=== PATIENT | female | born 1995 | race Caucasian/White ===

== ENCOUNTER 2016-10-25 01:10 | Inpatient (IN) | payer MEDICAID ==
[~2016-10-25] VITALS: Ht 172.7 cm; Wt 97.5 kg
--- NOTE | ~2016-10-25 | HP ---
ADMIT: 10/25/2016 RM/LOC: 221 [facility] MR#: [id number] 2620 [facility] [address] [place], [place] [address] DECEMBER, SCOTT BACON [address] [place] [address] History and Physical SEX: F AGE: 21 : 1995 DATE OF SERVICE: CHIEF COMPLAINT: Imminent delivery. HISTORY OF PRESENT ILLNESS: Scott is a 21-year-old, 2 para 1, with intrauterine at 38 weeks and 6/7 days. Presented early this morning as city-call patient, admitted to Dr. Ayala for complaints of contractions. Apparently, the patient is from [place], was following with her OB care with Dr. Moreno in [place], but has not been seen since approximately 20 weeks. She does not know of any complications during her . She admits to using marijuana just as recently as 2 weeks ago but denies any other drug use. The patient was admitted in active labor. She has had an epidural. As I was rounding, nursing personnel grabbed me to inform me that the patient was about to deliver and there was no physician on site as of yet. The patient complaining of significant pressure in her pelvis region. PAST MEDICAL HISTORY: Seizure disorder, unknown medications. MEDICATIONS: None. ALLERGIES: NONE THAT I AM AWARE. SOCIAL HISTORY: The father of the baby is unknown. The patient lives in [place]. She does smoke marijuana. I do not believe she is currently working. She also uses tobacco and has used during as well. FAMILY HISTORY: Noncontributory. REVIEW OF SYSTEMS: A 10-point review of systems obtained, per HPI, otherwise negative. PHYSICAL EXAMINATION: VITAL SIGNS: Within normal limits and stable. Afebrile. GENERAL: The patient was in much distress upon my initial examination with significant pressure in pelvis region. Infant noted to be on the perineum. Thick meconium stained. HEENT: Pupils equal, round, and reactive. Extraocular muscles intact. HEART AND LUNGS: Examination was deferred given state of the patient. ABDOMEN: Gravid. PELVIS: Examination again showed the infant's vertex to the perineum. EXTREMITIES: Without any edema. NEUROLOGIC: Intact. No focal deficits. LABORATORY DATA: White blood count 12.5, hemoglobin 13.3. Trace protein in the urine. Negative glucose. Drug abuse screen was positive for marijuana. HIV negative, hepatitis B negative, GBS unknown. No antibiotics given. Blood type A positive. ADMIT: 10/25/2016 RM/LOC: 221 [facility] MR#: [id number] [address] [address] DECEMBER, SCOTT ARLEEN [address] [facility] [address] [place] [address] History and Physical SEX: F AGE: 21 : 1995 ASSESSMENT: This is a 21-year-old with: 1. Active labor with imminent delivery. 2. Poor care with no care after 20 weeks. 3. Meconium stained fluid. 4. Group B Strep unknown without any antibiotics given. 5. Marijuana use during . 6. Tobacco use in . 7. Seizure disorder. PLAN: Imminent delivery of . We will plan for delivery. Expected management. Eduardo Walker MD/ xiang JOB #: [id number] CC: Wilfredo Ayala, Attending Physician Wilfredo Ayala, Family Physician
--- NOTE | ~2016-10-25 | FD ---
ADMIT: 10/25/2016 RM/LOC: 221 [facility] MR#: [id number] 2620 [facility] [address] [place] [phone] DECEMBER, SCOTT BACON [address] [facility] [address] [place] [address] Final Diagnosis SEX: F AGE: 21 : 1995 ADMISSION DATE: 10/25/2016 DISCHARGE DATE: 10/27/2016 FINAL DIAGNOSIS: 1. Term . 2. Noncompliance, care. PROCEDURE: Vaginal delivery. Wilfredo Ayala MD/ pete JOB #: [id number] CC: Wilfredo Ayala MD, Attending Physician Wilfredo Ayala MD, Family Physician
[2016-10-28] MEDS ORDERED: MOTRIN-DPS800 MG PO (10:51)
[2016-10-28] MEDS ORDERED: NIPPLECREAM TP (10:52)
[2016-10-28] MEDS ORDERED: TYLENOL #3 DPS1 TAB PO (10:52)
--- NOTE | 2016-11-01 08:10 | OR ---
ADMIT: 10/25/2016 RM/LOC: 221 [facility] MR#: [id number] [address] [address] DECEMBER, SCOTT BACON [address] [place] [address] Operative/Delivery Room Report SEX: F AGE: 21 : 1995 SURGERY DATE: 10/25/2016 SURGEON: Eduardo Walker MD PREOPERATIVE DIAGNOSES: 1. Imminent delivery. 2. Poor care with no care after 20 weeks. 3. Meconium-stained fluid. 4. Group B Streptococcus unknown, no antibiotics given. 5. Marijuana use during . 6. Tobacco use during . 7. History of seizure disorder. POSTOPERATIVE DIAGNOSES: 1. Status post spontaneous vaginal delivery. 2. Removal of epidural catheter. 3. Imminent delivery. 4. Poor care with no care after 20 weeks. 5. Meconium-stained fluid. 6. Group B Streptococcus unknown, no antibiotics given. 7. Marijuana use during . 8. Tobacco use during . 9. History of seizure disorder. PROCEDURE: 1. Spontaneous vaginal delivery. 2. Removal of epidural catheter. FINDINGS: 1. Live-born male, born at 0748 with a weight of 7 pounds 10.5 ounces, and scores of 8 and 9 at 1 and 5 minutes respectively. 2. Intact placenta with 3-vessel cord. ANESTHESIA: Epidural. ESTIMATED BLOOD LOSS: 200 mL. COMPLICATIONS: None immediate. FLUIDS: Crystalloid. INDICATION FOR PROCEDURE: Please refer to dictated H and P. Briefly, a 21- year-old, 2, para 1, with an intrauterine at 38 weeks 6/7 days, presented to Labor and Delivery on the morning of admission with complaints of contractions. She was found to be in labor and not followed up with her primary online marketing specialist, Dr. Moreno since approximately 20 weeks. The patient received epidural, progressed to labor to the point bringing the 's vertex to the perineum. There were no other major complications during labor and continuous maternal monitoring was done throughout and ADMIT: 10/25/2016 RM/LOC: 221 [facility] MR#: [id number] [address] [facility] [address] [place] [phone] DECEMBER, SCOTT BACON [address] [place] [address] Operative/Delivery Room Report SEX: F AGE: 21 : 1995 was reassuring. DESCRIPTION OF PROCEDURE: I was asked to help with delivery of , as the patient's attending physician was en route and delivery was imminent. Infant's vertex was noted to be on the perineum. The patient was draped in the usual fashion. She was asked to push, delivering the 's head in the OA position. After restitution of the head, no nuchal cords were noted, and the left anterior shoulder followed by the posterior shoulder and the remainder of the was done without difficulty. Infant was noted to be vigorous and crying. Mouth and nares were bulb-suctioned. was held below the maternal pelvis for approximately 30-45 seconds for delayed clamping. was dried, transferred to the maternal abdomen, where nursing personnel were in attendance. Cord was clamped x2 and cut. Cord blood was obtained. Placenta delivered intact in less than 5 minutes. Attention then turned to the vaginal vault and cervix, which were noted to be free of laceration. Likewise, perineum, noted to be free of laceration. Uterus was palpable and firm. Twenty units of Pitocin was started in the IV bag to help firm the uterus. There were no other major complications during the delivery. Sponge and needle counts were correct. The epidural was removed post procedure without difficulty and noted to be correct length. Infant and mother were in stable condition on my departure, recovering well. Eduardo Walker MD/ xiang JOB #: [id number] CC: Wilfredo Ayala, Attending Physician Wilfredo Ayala, Family Physician Gabby Moreno MD
== END 2016-10-27 12:51 | disposition home or self-care (01) | DRG 775 ==
LOC: 2LDRP 01:10 → BC 01:10 → 2LDRP 01:53
PROVIDERS: ADMIT Family Medicine
PROC: 10E0XZZ Delivery of Products of Conception, External Approach (ICD-10-PCS; principal; 2016-10-25)
DX: O77.0 Labor and delivery complicated by meconium in amniotic fluid (principal); O99.324 Drug use complicating childbirth; O99.334 Smoking (tobacco) complicating childbirth; F17.210 Nicotine dependence, cigarettes, uncomplicated; F12.90 Cannabis use, unspecified, uncomplicated; Z3A.38 38 weeks gestation of pregnancy; Z37.0 Single live birth

== ENCOUNTER 2016-12-01 12:02 | Emergency (ER) | payer MEDICAID ==
[~2016-12-01 12:02] MED LIST: MOTRIN-DPS800 MG PO; NIPPLECREAM TP; TYLENOL #3 DPS1 TAB PO
== END 2016-12-01 13:37 | disposition left against medical advice (07) ==
LOC: ER 12:02
DX: Z53.21 Procedure and treatment not carried out due to patient leaving prior to being seen by health care provider (principal)

== ENCOUNTER 2017-01-06 14:15 | Inpatient (IN) | payer MEDICAID ==
[~2017-01-06] VITALS: Ht 172.7 cm; Wt 86.8 kg
--- NOTE | ~2017-01-06 | TXPLANREV ---
"PATIENT: SCOTT DAWKINS | | [facility] UNIT #: [id number] | [address] [facility] AGE/SEX: 21 F : [birth year] | [address] | [place] [phone] ADMIT/REG DATE: 01/06/17 | ROOM: [facility] LOC: ADTC | ADTC | Treatment Plan/Staffing Review Date: 01/27/17 Treatment plan was reviewed and determined appropriate as written: Client has session with father to share feelings letters and discuss aftercare. Is to work on Relapse prevention packet. Treatment plan was reviewed and the following changes/addition/deletions are necessary: Discharge plans were reviewed and determined appropriate as previously documented: Client is scheduled for discharge on 02/03/17, She [facility], but has applied to [facility] to live there until [facility] an opening. She is to do aftercare counseling and Codependency Group therapy here while waiting. If [facility] does not have any openings for over 2 months then can reevaluate if that is still a need. Client is to call sponsor 4-7x/week and attend meetings 4-7x/week and seek employment. Discharge plans were reviewed and determined to be as follows: Other pertinent issues discussed during this staffing review include: Client had appearance of starting a relationsip with male in treatment and will be put on contract. Staff Present: Bella Garcia, Katharine Sylvester, Arlin Mead, Rhonda Hansen PRIMARY COUNSELOR: Kimi Valdez Client Signature Counselor Signature Date Time "
--- NOTE | ~2017-01-06 | INDIVTXPL2 ---
"PATIENT: SCOTT DAWKINS | | [facility] UNIT #: [id number] | [address] AGE/SEX: 21 F : [birth year] | [address] | [place] [address] ADMIT/REG DATE: 01/06/17 | ROOM: [facility] LOC: ADTC | ADTC | Individualized Treatment Plan DATE: 01/13/17 Problem Statement/Issue Identified: Client has struggled with alchol/drug use causing consequences in her life and needs help to be clean/sober. Goal: Client is to learn about alcohol/drug addiction, identifying consequences of her use and learn how to work the AA/NA/SYSTEM DEVELOPMENT MANAGER program of recovery. Objectives/Activities to achieve goal: 1. Client is to fill out Getting Started and Step 1 packets, identifying 10-15 consequences of her use. Share with counselor and share selected pages in group. Due Date: 01/21/17 Complete: Incomplete: 2. Client is to get temporary Female AA/NA/SYSTEM DEVELOPMENT MANAGER sponsor to call weekly while in treatment. Share progress with counselor. Due Date: ongoing Complete: Incomplete: 3. Client is to attend and talk at AA/NA/SYSTEM DEVELOPMENT MANAGER meetings weekly and is to pick a topic at a meeting or help chair a meeting. Due Date: ongoing Complete: Incomplete: Client Signature Date Counselor Signaure: Date Outcome/Measurement of Progress Towards Goal: Counselor Signature: Date "
--- NOTE | ~2017-01-06 | INDIVTXPL2 ---
"PATIENT: SCOTT DAWKINS | | [facility] UNIT #: [id number] | [address] AGE/SEX: 21 F : [birth year] | [address] | [place] [phone] ADMIT/REG DATE: 01/06/17 | ROOM: [facility] LOC: ADTC | ADTC | Individualized Treatment Plan DATE: 01/18/17 Problem Statement/Issue Identified: Client needs to address issues related to past childhood trauma/anxiety/anger which is contributing to their continued abuse of chemicals. Goal: Client is to address her past trauma/feelings with counselor using EMDR. Objectives/Activities to achieve goal: 1. Client is to get oriented to EMDR with video and doing EMDR safe-place. See counselor note. Due Date: 01/20/17 Complete: Incomplete: 2. Client is to do EMDR on trauma/anxiety/anger if willing. See counselor notes. Due Date: 02/02/17 Complete: Incomplete: Client Signature Date Counselor Signaure: Date Outcome/Measurement of Progress Towards Goal: Counselor Signature: Date "
--- NOTE | ~2017-01-06 | INDIVTXPL2 ---
"PATIENT: SCOTT DAWKINS | | [facility] UNIT #: [id number] | [address] AGE/SEX: 21 F : [birth year] | [address] | [place] [phone] ADMIT/REG DATE: 01/06/17 | ROOM: [facility] LOC: ADTC | ADTC | Individualized Treatment Plan DATE: 01/25/17 Problem Statement/Issue Identified: Client needs to identify relapse warning signs and develop a plan to deal with them as they arise. Goal: Client is to learn about relapse prevention, identifying her top relapse triggers and develop a plan of how to cope with them to prevent relapse. Objectives/Activities to achieve goal: 1. Client is to attend Relapse Prevention class every Tuesday 3-4pm while in treatment and participate. See class notes. Due Date: 02/03/17 Complete: Incomplete: 2. Client is to fill out Relapse Prevention packet, identifying top 5-10 relapse triggers and develop a plan of how to avoid relapse. Share with counselor and selected pages in group Due Date: 02/03/17 Complete: Incomplete: Client Signature Date Counselor Signaure: Date Outcome/Measurement of Progress Towards Goal: Counselor Signature: Date "
--- NOTE | ~2017-01-06 | TXPLANREV ---
"PATIENT: SCOTT DAWKINS | | [facility] UNIT #: [id number] | [address] AGE/SEX: 21 F : [birth year] | [address] | [place] [phone] ADMIT/REG DATE: 01/06/17 | ROOM: [facility] LOC: ADTC | ADTC | Treatment Plan/Staffing Review Date: 01/20/17 Treatment plan was reviewed and determined appropriate as written: yes, client is attending family with S.O. did come to family session, and client is to write feelings letters. Treatment plan was reviewed and the following changes/addition/deletions are necessary: Discharge plans were reviewed and determined appropriate as previously documented: Discharge plans were reviewed and determined to be as follows: Client is to discharge on 02/03/17, she has applied at [facility] and did the interview. She is being referred to [facility] and may need to be at [facility] while waiting for that opening so did apply also for [facility]. Client is also being referred to AA/NA/MICROSTRATEGY DEVELOPER and using sponsor. Other pertinent issues discussed during this staffing review include: Client appears to struggle with self-esteem, emotions and does talk with several counselors off and on. She is going to address self-esteem and trauma while here which should help. Her S.O. may still be using per staff. Staff Present: Bella Garcia, Arlin Mead, Rhonda Case, Raissa Gutierrez, Courtney Dill, Mayra Thrasher PRIMARY COUNSELOR: Kimi Valdez Client Signature Counselor Signature Date Time "
--- NOTE | ~2017-01-06 | RESCARESUM ---
PATIENT: SCOTT DAWKINS | | [facility] UNIT #: [id number] | [address] [facility] AGE/SEX: 21 F : [birth year] | [address] | [place] [address] ADMIT/REG DATE: 01/06/17 | ROOM: [facility] LOC: ADTC | ADTC | Summary of Residential Care Primary Counselor: Kimi Valdez LM,[facility] Date of Admission: 01/06/17 Date of Discharge: 02/03/17 Referral Source: Referred by Wallace Rivera MS,AKIN,[facility] billet checker Kiersten Patiño Primary Care Provider Prior to Admission: no doctor listed Admitting Diagnosis: F12.20 Cannabis use disorder-severe, F15.20 Stimulant use disorder-severe in full-sustained remission, F17.20 Tobacco use disorder and per Doctors H&P-Seizure disorder Discharge Diagnosis: unchanged and rule out alcohol abuse disorder-mild as she was drinking 3x/year but at times more than 2-3. Goals Achieved: Client successfully completed residential treatment for addiction. She did complete Step 1, did get and use a sponsor while in treatment, wrote feelings letters and her father was involved in Family Session but not the family program. Client attended the Family Program alone. She did work on self-esteem but needs further help with this. She also did do EMDR therapy but could use further help with this also. She did start on Relapse Prevention packet and attended classes weekly on Relapse Prevention, 12 steps, Spirituality and Recover 101. Client was put on contract due to fraternization with a male in treatment (note/letter writing) and she had an old BF pick her up on day of discharge saying she would be safe and not use, and is to stay with her Grandmother vivian and enter [facility] tomorrow. Continued Obstacles to Sobriety/Relapse Issues: Put on front "I'm Fine", not asking for help, impatience, negativity, isolation, anger, people-pleasing, jealousy, stress/worry, codependency/poor boundaries, low self-esteem Family Issues Addressed: Clients father is her childrens caregiver/foster home and seems very loving to her 2 babies. He did come in for private family session and did hear client share feelings letter. He wants her to succeed in staying clean/sober and to get her 2 children back. He did ask if he would be allowed visits at [facility] to see these 2 grandchildren that he is very attached to. x Individual Therapy x Group Therapy x Educational Series on Substance Abuse x Parents/Significant Others Attended Family Program Acute Medical Problems During the Course of Treatment Transferred to Hospital During the Course of Treatment x Accepting of Substance Abuse Problem Non-accepting of Substance Abuse Problem Required Psychological or Psychiatric Consultation During the Course of Treatment PATIENT: SCOTT DAWKINS | | [facility] UNIT #: [id number] | [address] [place] [address] AGE/SEX: 21 F : [birth year] | [address] | [place] [address] ADMIT/REG DATE: 01/06/17 | ROOM: [facility] LOC: [facility] | [facility] | Summary of Residential Care Completed AA Step # 1 During This Level of Care Significant Incidences During Treatment: Client was put on contract for her fraternization, note writing and spending too much time with a male while in treatment. Reason For Discharge: x Completed Residential TX Goals and Ready For Next Level of Care Left Tx Against Medical Advice/Treatment Goals Not Complete Completed Residential Tx Goals But Refusing Continuing Care Recommendations Discharged Due to Noncompliance/Treatment Goals not Completed Discharged Earlier Than Planned Due to: Continuing Care Plan/Recommendations: Intensive Partial Care x Sponsor Partial Care x AA Meetings/NA Meetings x Outpatient x Co-dependency Services Therapeutic Community x [facility]/[address] [facility] [address] [facility] Marriage Counseling Other Specific Continuing Care Plan: Client is [facility] but is currently on the waiting list and is to call them every Tuesday or Tuesday. She is to enter [facility] until [facility] get [facility]. She is being referred to continue Outpatient/Aftercare with Wallace Rivera on 02/11/17 at 12:00noon and is to start Codependency Group on 02/10/17 at 6pm. She is to attend AA/NA/SERGING MACHINE OPERATOR 3-7x/week and call sponsor daily. PRIMARY COUNSELOR: Kimi Valdez
--- NOTE | ~2017-01-06 | INDIVTXPL2 ---
PATIENT: SCOTT DAWKINS | | [facility] UNIT #: [id number] | [address] AGE/SEX: 21 F : [birth year] | [address] | [place] [phone] ADMIT/REG DATE: 01/06/17 | ROOM: [facility] LOC: ADTC | ADTC | Individualized Treatment Plan DATE: 01/25/17 Problem Statement/Issue Identified: Client needs to identify ways to improve self esteem to help maintain moth exterminator sobriety from all mood altering substances. Goal: Client is to build her self-esteem to help strengthen her recovery from addiction. Objectives/Activities to achieve goal: 1. Client is to fill out lists of 10 examples "I'm worthwhile because" and "Your thoughts and Feelings" incomplete sentences to know self better and identify good qualities. Share with counselor and/or group. Due Date: 01/28/17 Complete: Incomplete: 2. Client is to interview 7 peers and 3 staff to name 2 good qualities about her and is to add it to her lists. Share with counselor. Due Date: 02/01/17 Complete: Incomplete: Client Signature Date Counselor Signaure: Date Outcome/Measurement of Progress Towards Goal: Counselor Signature: Date
--- NOTE | ~2017-01-06 | INDIVTXPL2 ---
"PATIENT: SCOTT DAWKINS | | [facility] UNIT #: [id number] | [address] AGE/SEX: 21 F : [birth year] | [address] | [place] [address] ADMIT/REG DATE: 01/06/17 | ROOM: [facility] LOC: ADTC | ADTC | Individualized Treatment Plan DATE: 01/13/17 Problem Statement/Issue Identified: Client is experiencing family & significant other discord and distancing as a result of past alcohol & drug usage. Goal: Client is to learn about how addiction affects loved ones/self, and improve honest communication/sharing feelings to strengthen her relationships. Objectives/Activities to achieve goal: 1. Client is to attend Family Educational program on and Tuesday and participate. See Family Notes. Due Date: 01/24/17 Complete: Incomplete: 2. Client is to write feelings letters to Parents, kids, & S.O. owning how her addiction has hurt them and her feelings about this. Share with counselor/group/family. Due Date: 02/03/17 Complete: Incomplete: 3. Client is to have a family session with S.O. &/or father to hear there perspective/ observation/feelings about her addiction. See family session notes. Due Date: ongoing Complete: Incomplete: Client Signature Date Counselor Signaure: Date Outcome/Measurement of Progress Towards Goal: Counselor Signature: Date "
--- NOTE | ~2017-01-06 | CLPRLASSUM ---
"PATIENT: SCOTT DAWKINS | | [facility] UNIT #: [id number] | [address] AGE/SEX: 21 F : [birth year] | [address] | [place] [id number] ADMIT/REG DATE: 01/06/17 | ROOM: [facility] LOC: ADTC | ADTC | Client Problem List/Assessment Summary Date: 01/12/17 Problems identified by the client: addiction, family, childhood trauma to help with feelings/anger/anxiety, self-esteem, relapse prevention Problems identified by significant others: addiction, deal with anger/anxiety Client's Strengths: kind, motivated, honest Problem List: Code: T Client continues to use alcohol &/or drugs despite ongoing negative consequences. Code: T Client is experiencing family &/or significant other discord and distancing as a result of past alcohol &/or drug usage. Code: T Client needs to address issues related to past childhood trauma/anxiety/anger which is contributing to their continued abuse of chemicals. Code: T Client needs to identify ways to improve self esteem to help maintain intermediate teacher sobriety from all mood altering substances. Code: T Client needs to identify relapse warning signs and develop a plan to deal with them as they arise. Code Hong: T: to be addressed during course of treatment O: problem noted, expected to resolve itself with abstinence--specific tx plan not required R: problem noted, will be referred upon discharge PRIMARY COUNSELOR: Kimi Valdez"
--- NOTE | 2017-01-06 16:15 | NUR ---
IS 1 hr/ Client and counselor got acquainted, she shared about herself and has kids in [place], says she is motivated to get help and [facility]. She failed several UA's for marijuana and wants to be clean for herself and her 2 sons that are at her fathers. 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 She was having seizures but got off Phenobarbital as it made her feel drugged/sleepy. She has 2 children and back with a bF she had before that they had miscarriage together. She felt depressed when [facility] made her move out of dad's house, was arrested 11/13/15 and has had [facility] involved since then, also drank 2x since August 2016. Did go over initial tx plan and is to fill out GS packet.
--- NOTE | 2017-01-06 21:54 | NUR ---
ADMISSION NOTE Client is a 21 year old single female from [place] where she lives with her dad and 2 sons. Client came here from her friends house where she was for 2 weeks. DOC is pot, last used December 18 and 3 grams used. Meth from over a year ago. NKMA, no Meds and Dad anticipated to participate in family. notified, checked into room. Kimi assigned counselor. Rights/Responsibilities: Copy given and explained to client. Signed and accepted by client. Client oriented to physical lay out of the ADTC unit, given Big Book and admission packet. A Kyle was assigned. Stacy
--- NOTE | 2017-01-06 22:12 | NUR ---
Education 1 HR: Clt watched video by Flora "Dionna Sorensen" with staff present.
--- NOTE | 2017-01-06 22:35 | NUR ---
Tech Note: Clt walked for recreation and attended GM. Clt searched , checked into room and had first intro to grp. SE arriving tx
--- NOTE | 2017-01-07 04:45 | NUR ---
Bed Note: Clt lay motionless in bed with eyes closed showing no distress at all bed checks.
--- NOTE | 2017-01-07 11:30 | NUR ---
Group 1.5 hr/ 11:1 Clients all heard peers share in discussion about when is it addiction with loss of control or being a "functional addict" as peer asked questions. Also they introduced self to newcomer. This client was attentive and gave some feedback.
--- NOTE | 2017-01-07 15:57 | NUR ---
PEER REVIEWS 1.25 HRS: Clt participated in peer reviews and took a risk to give open and honest feedback to those receiving a review.
--- NOTE | 2017-01-07 16:20 | NUR ---
Tech Note: Client listened to speaker Michel Villatoro and is working on Getting Started.
--- NOTE | 2017-01-07 16:42 | NUR ---
Let her call father about cigs and he said she will get child visit this Tuesday.
--- NOTE | 2017-01-07 20:57 | NUR ---
Tech note: client watched TV and movies. Walked to optional offiste AA meeting. SE:peer review
--- NOTE | 2017-01-08 04:59 | NUR ---
Bed note: Client was in bed with eyes closed and no distress at all bed checks.
--- NOTE | 2017-01-08 16:52 | NUR ---
Tech Note: Client attended the A.A.Meeting at [address] [place] [address] and is working on Step1. Client also had a visit.
--- NOTE | 2017-01-08 22:55 | NUR ---
Tech note: Client walked around the park a few times for rec. Client walked to an off site AA meeting. SE: Family
--- NOTE | 2017-01-09 05:02 | NUR ---
Bed note: client was in bed with eyes closed and no distress at all bed checks.
--- NOTE | 2017-01-09 15:31 | NUR ---
TECH NOTE: Client participated in big book study, attended mu-ism, completed chores and watched tv/movies. Had visitors and went for a walk
--- NOTE | 2017-01-09 19:16 | NUR ---
tech note: client c/o level headache/migraine @ 1914,motrin 400 mg was given.
--- NOTE | 2017-01-09 23:30 | NUR ---
tech note: Client participated in Community Clean & attended VP RESPIRATORY meeting. Client played cards & colored. SE: sponsor celebrating 6 years.
--- NOTE | 2017-01-10 04:45 | NUR ---
Bed note: client was in bed with eyes closed and no distress at all bed checks.
--- NOTE | 2017-01-10 15:17 | NUR ---
Tech note: Client is working on Step 1.
--- NOTE | 2017-01-10 22:58 | NUR ---
Tech Note: Clt walked for recreation and attended onsite NA mtg. C/o about being shaky and bruising on legs. Clt blamed new medication for this problem and filled out self care sheet. Vitals were B/P 120/72 P 105 and Temp 97.7. RN was notified. SE was visit and JUAN pérezg.
--- NOTE | 2017-01-11 04:45 | NUR ---
Bed Note: Clt lay motionless in bed with eyes closed showing no distress at all bed checks.
--- NOTE | 2017-01-11 12:44 | NUR ---
1.5 hr res group/ratio 1:9/ Group heard a step one, a letter to addiction, and discussed the importants of keeping a balance of not doing to many nice things for others verses taking care of self. This client started to cry when she talked about codependency and how she helped others too much.
--- NOTE | 2017-01-11 12:45 | NUR ---
1.5 hr res group/ratio 1:9/ Group heard a step one, a letter to addiction, and discussed the importants of keeping a balance of not doing to many nice things for others verses taking care of self. This client started to cry when she shared she is codependent and likes to help others too much.
--- NOTE | 2017-01-11 15:37 | NUR ---
Tech Note: Client participated in light stretching for morning exercise and went on an outdoor walk in the afternoon. Client stated that he is working on Step One.
--- NOTE | 2017-01-11 15:48 | NUR ---
Education 1 Hour: Client watched the video, "How to Sabotage your Treatment."
--- NOTE | 2017-01-11 18:01 | NUR ---
Medication Note: Client refused a medication today, wants to discontinue it.
--- NOTE | 2017-01-11 23:04 | NUR ---
Tech note: Client walked a mile for rec, did guided meditation and attended an onsite AA meeting. SE; Talking with women in AA community
--- NOTE | 2017-01-11 23:05 | NUR ---
Client was up past curfew
--- NOTE | 2017-01-12 04:23 | NUR ---
Education: 1 Hour. Client attended presentation by staff on "Step 1."
--- NOTE | 2017-01-12 05:16 | NUR ---
Bed note: Client was in bed with eyes closed and in no apparent distress at all bed checks.
--- NOTE | 2017-01-12 09:42 | NUR ---
Tech notes: Client is working on Step 1 and mtg with kathrine
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
--- NOTE | 2017-01-12 12:09 | NUR ---
FAMILY CONTACT- did call clients father, he works til 5:30 but can come after that for Tuesday family program if finds a coffee grower. He will talk to coffee grower. Counselor may need to do phone session if no sitter. He hopes she works on addiction, anger and anxiety, how to cope with those feelings.
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
--- NOTE | 2017-01-12 13:30 | NUR ---
Education note: Client attend educational speaker Vicky Rodriguez
--- NOTE | 2017-01-12 16:31 | NUR ---
SPIRITUAL EDUCATION 1 HR. Newcomers were oriented to group. Todays topic was addicted self vs spiritual self which we discussed first then they depicted the contrast in artwork. The ones that finished first wrote letters to welcome anonymous newcomers.
--- NOTE | 2017-01-12 22:47 | NUR ---
Tech note : Client played catch phrase for rec and attended an onsite NA meeting. SE; Getting a sponsor
--- NOTE | 2017-01-13 04:42 | NUR ---
Bed note: client was in bed with eyes closed and no distress at all bed checks.
--- NOTE | 2017-01-13 10:49 | NUR ---
Tech Note : Client participated in Spiritual Enrichment. Client stated that she is working on Step One and writing a letter to newcomers.
--- NOTE | 2017-01-13 11:30 | NUR ---
AM GRP 1.5 HRS, Ratio 1:10/ Clt participated in grp discussion on various topics, including relationships, with PO's, counselors, s/o's and kids. She could relate to the relationship she has w/ her purchasing manager/sales. She thinks she is against her and doesn't want her to succeed. She heard she needs to change her outlook on authority and see her purchasing manager/sales for what she IS trying to help her with.
--- NOTE | 2017-01-13 13:10 | NUR ---
Education 1 Hour: Client heard a recovery speaker who addressed the subject of hope.
--- NOTE | 2017-01-13 16:52 | NUR ---
FAMILY SESSION .75 HR/ Did meet with client before family program, she was wanting to leave so let her call her S.O. to ask him to come to Family today and he did. She thanked counselor. Then met with both of them after family program, they have been best friends for years, use to date and now are back together. He has to go to Sentencing on 01/29 and is facing 0-2. He doesn't like 12 step meetings so doesn't go, but depends on family support and keeping busy for his recovery. Asked client about why she wanted to leave and what will stop that in the future from happening, she said she wanted to leave because reacted to "Drama" of peer. She gets alot of help/support by calling and talking with sponsor/S.O. and a tech and a counselor here also are very helpful so counselor praised her for working her program, she did stay and she did ask for help. Confronted that desire to run is addiction. She asked about [facility] and counselor explained how they are unpredictable and therefore unsafe, did discuss [facility] and they both said that sounds great, so will apply there and also at [facility] as place to wait for opening. Client likes this idea. Will get releases signed later.
--- NOTE | 2017-01-13 17:00 | NUR ---
FAMILY EDUCATION 3 HRS. Client was accompanied by her S/O. They took part in the discussion on the disease concept. S/O reports that he may be going back to [facility] in 13 days, making reference to his own drug use and smirked. When he was confronted, he said it was like daycare and he didn't have to worry about bills there. Client shared about effects on her kids, which are not S/O's children even though they have been together off and on for 6 (?) years.
--- NOTE | 2017-01-13 20:35 | NUR ---
Education: 1 Hour. Client attended Renzo Guillermo video "Step 5."
--- NOTE | 2017-01-13 22:57 | NUR ---
Client went on a walk for rec, participated in guided meditation, and attended the on unit A.A.Meeting. SE: Family
--- NOTE | 2017-01-14 05:29 | NUR ---
Bed Note: Client was in bed and motionless at all bed checks.
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
--- NOTE | 2017-01-14 13:00 | NUR ---
PEER REVIEWS 1.5 HRS: Clt participated in peer review process and was able to give open, honest feedback to those receiving a review.
--- NOTE | 2017-01-14 14:27 | NUR ---
Tech Note: Client watched Recovery Issues Part 3. Is working on Step 1.
--- NOTE | 2017-01-14 20:16 | NUR ---
Tech note: Clt read guidelines as a grp, used phone and watched tv/movies. Clt had clothes brought in by s/o. SE was chap time
--- NOTE | 2017-01-15 05:20 | NUR ---
BED NOTE: Client was in bed, motionless with eyes closed all bed checks.
--- NOTE | 2017-01-15 16:50 | NUR ---
Tech Note: Client attended NA Panel today and is working on Step 1. He had visitors.
--- NOTE | 2017-01-15 20:14 | NUR ---
TECH NOTE: Client participated in beads for REC, attended offsite AA meeting and watched TV/Movies. SE:NA panel, visits
--- NOTE | 2017-01-16 04:55 | NUR ---
Bed Note: Clt lay motionless in bed with eyes closed showing no distress at all bed checks.
--- NOTE | 2017-01-16 07:40 | NUR ---
Medication Note: Client took prn ibuprophen for menstrual cramps rated at 5.
--- NOTE | 2017-01-16 16:10 | NUR ---
Tech Note: Client is working on Step 1. She went to protestant, joined group on optional walk and had visitors.
--- NOTE | 2017-01-16 22:55 | NUR ---
Tech Note: Client attended the on unit A.A.Panel. Client also attended the BANDER OPERATOR Meeting. SE: A.A.Panel/Visitation
--- NOTE | 2017-01-17 04:41 | NUR ---
Client was in bed and motionless at all bed checks.
--- NOTE | 2017-01-17 09:56 | NUR ---
Tech notes: Client is working on Step 1
--- NOTE | 2017-01-17 13:36 | NUR ---
Education note: Client attended educational speaker Violeta on Tobacco
--- NOTE | 2017-01-17 13:55 | NUR ---
PEER REVIEWS/Morning Group 1.50 HRS: Clt participated in peer reviews and took a risk to give open and honest feedback to those receiving a review. Client listened during am group.
--- NOTE | 2017-01-17 16:00 | NUR ---
RECOVERY 101 1 HR/ Clients did read and discuss several topics in the Big Book on HOnesty, 1/2measures, step 3, selfishness, 12 Promises, resentments, acceptance and how changing their attitudes empowers them to have happiness daily. They were given highlighters so the Big Book can become a tool in recovery.
--- NOTE | 2017-01-17 18:17 | NUR ---
EDUCATION 1 HR: Counselor gave lecture on forgiveness.
--- NOTE | 2017-01-17 23:28 | NUR ---
tech note: Client played Catch Phrase for recreation & attended onsite NA meeting. Client left the NA meeting and came to tech station complaining of former client XV in the meeting being disruptive-talking and having her phone out. Client was encouraged to bring this issue up in the morning community meeting. SE: Catch Phrase
--- NOTE | 2017-01-18 05:38 | NUR ---
BED NOTE: Client was in bed, motionless with eyes closed all bed checks.
--- NOTE | 2017-01-18 08:54 | NUR ---
Medication Note: Client is refusing morning vitamins, stating they make her feel sick.
--- NOTE | 2017-01-18 10:00 | NUR ---
IS 1 hr/ Client and counselor went over her assignments, and she told counselor why she doesn't need [facility] and will just do outpatient and live with her dad in [place] who can give her rides to counseling and meetings. Counselor confronted that with her HHS case she really needs to follow our recommendatins, she had the chance to do it in outpatient and failed. Counselor explained once again why she needs to go to [facility] to get support as a new recovering person, as a mom, as a person becomng grown-up and independent of parents. Client then did become agreeable to [facility]. She also is to fill out the [facility] [employer] application to give her place to stay until [facility] has an opening.
--- NOTE | 2017-01-18 11:30 | NUR ---
GROUP 1.5 HRS. 1:11 Client participated in orienting new peers to purpose and rules of group. Peer attempted to process his step 1 assignment to identify 15 values and examples of how he betrayed them but he failed to provide examples and only listed a couple of values. This client was involved in sidetalk with female peer and did not actively participate in group.
--- NOTE | 2017-01-18 15:00 | NUR ---
Relapse Prevention, 1.0 hours, Client attended and actively participated in relapse prevention education which focused on completing a relapse quiz and discussion.
--- NOTE | 2017-01-18 16:29 | NUR ---
Tech Note: Client participated in light stretching for morning exercise and went on an outdoor walk in the afternoon. Client followed programming.
--- NOTE | 2017-01-18 17:22 | NUR ---
Education 1 Hour: Client heard a presentation on Sexually Transmitted Disease.
--- NOTE | 2017-01-18 23:35 | NUR ---
TECH NOTE: Client Attended Alumni meeting, played Catch Phrase for REC, participated in Guided Meditation, and attended AA meeting. SE: REC
--- NOTE | 2017-01-19 04:36 | NUR ---
Bed Note: Client was in bed and motionless at all bed checks.
--- NOTE | 2017-01-19 11:01 | NUR ---
Tech Notes: Client is working on Step 1 and Fl's.
--- NOTE | 2017-01-19 11:30 | NUR ---
GROUP 1.5 HRS. 1:11 Client participated in orienting new peer to purpose and rules of group. Group discussion included grief and loss of loved ones including miscarriages for a couple of peers. Client appeared sad and when prompted she identified that she has been taking her dad for granted. He has diabetes and is currently caring for her two young children due to her actions.
--- NOTE | 2017-01-19 12:52 | NUR ---
Education Note: Client attended education by [facility]
--- NOTE | 2017-01-19 18:20 | NUR ---
EDUCATION 1HR: Counselor gave presentation on Unresolved Anger.
--- NOTE | 2017-01-19 18:52 | NUR ---
SPIRITUAL EDUCATION 1 HR. ORIENTED NEWCOMERS, AND TODAYS TOPIC WAS THE SPIRITUAL QUESTION GAME DESIGNED TO START PEOPLE THINKING ALONG SPIRITUAL LINES AND GET MORE COMFORTABLE DISCUSSING IT.
--- NOTE | 2017-01-19 20:46 | NUR ---
Contact Note: Client came to my office about 8:35 crying asking if she could talk for a minute. She stated that she was having anxiety about everyone not liking her and talking about her. Client shared she could read lips pretty good and she thought two females were talking about her. She calmed down and was directed back to the meeting.
--- NOTE | 2017-01-19 22:26 | NUR ---
TECH NOTE: Client went on a walk for REC and attended NA meeting.Left NA meeting to speak with counselor SE: NA meeting
--- NOTE | 2017-01-20 04:49 | NUR ---
BED NOTE: Client was in bed, motionless with eyes closed all three bed checks.
--- NOTE | 2017-01-20 08:13 | HP ---
ADMIT: 01/06/2017 RM/LOC: [id number] MR#: [id number] [address] [facility] [address] [place], [place] [id number] DECEMBER, SCOTT BACON [address] [place] [address] History and Physical SEX: F AGE: 21 : 1995 DATE OF SERVICE: CHIEF COMPLAINT: Chemical dependency. HISTORY OF PRESENT ILLNESS: Scott is a 21-year-old single white female with 2 children who are currently in the system through [facility]. She has a child who was born in September 2015 who CPS has gained custody of and also one born in October 2016 with CPS involvement. The children are currently being cared for by father. She had attempted outpatient treatment and continued to use marijuana and subsequently referred herself to residential level treatment. Scott's drug of choice on admission is cannabis. She first started smoking pot around 14. Initially smoked about twice a year. In 11th grade, she started smoking pot daily and dropped out. She has been smoking approximately 3.5 g of pot a week ever since. Her last marijuana was October 18, 2016, while she was an outpatient. Second drug of choice is methamphetamines. She first started using meth at 18 years of age when she smoked it. Initially, she smoked about twice a week. She states within a month, she was smoking daily and from [age], she smoked methamphetamines daily off and on. Her last meth use was November 13, 2015. She denies a third drug of choice. She states she never really drank much for alcohol. She admits to trying shrooms couple times, acid once, duster once, and heroin once. PAST MEDICAL HISTORY: Operations none. ILLNESSES: Seizure disorder with previous maintenance on Keppra. She has had 2 prior deliveries. MEDICATIONS: None. ALLERGIES: NONE KNOWN. SOCIAL HISTORY: Is that of a 21-year-old single white female. She has 2 children one born in October of 2016, one in September 2015. They are currently both under the care of her father. She smokes half to one pack of cigarettes daily and is currently unemployed and does not drive due to her seizures. FAMILY HISTORY: Hypertension in her father and maternal grandmother. Diabetes in father and paternal grandmother, and father, mother, brother, sisters, step father drink and do drugs. REVIEW OF SYSTEMS: Remarkable for seizures. PHYSICAL EXAMINATION: VITAL SIGNS: Height of 5 feet 8 inches, weight of 86 kg, blood pressure 103/70 with a pulse 59, temp 98. ADMIT: 01/06/2017 RM/LOC: [id number] MR#: [id number] [address] [id number] [facility] [address] [facility] [address] [place] [address] History and Physical SEX: F AGE: 21 : 1995 GENERAL APPEARANCE: A 21-year-old white female. She is alert, oriented, and in no acute distress. HEENT: Pupils reactive. Extraocular muscle intact. TMs normal. Throat normal. Neck normal. HEART: Regular without murmur. LUNGS: Clear. ABDOMEN: Soft, nontender, benign. BREASTS, , AND RECTAL: Deferred. EXTREMITIES: No clubbing, cyanosis, or edema. NEUROLOGIC: Normal including light touch, strength, DTRs. ASSESSMENT: 1. Cannabis use disorder, severe. 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 2. Tobacco use disorder and seizure disorder. PLAN: We will place her on a multivitamin. We will initiate Dilantin therapy and given her seizure disorder, we will have pharmacy dose to appropriate levels and followup labs in 10 days. We will proceed with drug and alcohol abuse dependency treatment and counseling and further evaluation and management based on course during hospitalization. Please see her hospital record for the details. Artis Garibay MD/ xiang JOB #: [id number] CC: Artis Garibay, Attending Physician UNKNOWN, Family Physician
--- NOTE | 2017-01-20 11:30 | NUR ---
Morning group: 1:10: 1.5 hrs. Clt attended and actively participated ingroup discussion. Clt acknowledged having poor coping skills and is learning better skills, participating here, She was not going to meetings before admission. Ani Lane, student
--- NOTE | 2017-01-20 13:59 | NUR ---
Tech Note: Clt went on walk, watched "How to Sabotage Your Treatment" and is working on Feelings Letters and the Big Book.
--- NOTE | 2017-01-20 19:56 | NUR ---
Education Note 1 HR: Clt watched video by Americo Miller entitled "My Attitude".
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
--- NOTE | 2017-01-20 20:33 | NUR ---
FAMILY NOTE- did call clients dad and he will come in next at 1pm.
--- NOTE | 2017-01-20 22:55 | NUR ---
Tech Note: Client Participated in guided meditation and attended the on site A.A.Meeting. Client played a game for rec. SE: Starting EMDR today
--- NOTE | 2017-01-21 05:03 | NUR ---
Bed Note: Client was in bed and motionless at all bed checks.
--- NOTE | 2017-01-21 12:55 | NUR ---
AM RES GROUP 1.5 HRS. RATIO 08/26. Topics today were on assignments shared, marijuana, and addiction concept. We also oriented newcomers. This client was mostly quiet but remained attentive and offered some feedback that was appropriate.
--- NOTE | 2017-01-21 13:29 | NUR ---
Tech Note: Clt joined group on outside walk and watched "Marijuana" by Americo Miller. Clt is working on Feelings Letters and reading the Big Book.
--- NOTE | 2017-01-21 21:10 | NUR ---
Tech Note: Clt read guidelines with grp, used phone and watched tv/movies. SE was seeing dad
--- NOTE | 2017-01-21 23:09 | NUR ---
Tech note: Client played games and watched movies. SE: Seeing father
--- NOTE | 2017-01-22 04:06 | NUR ---
Bed Note: Clt lay motionless in bed with eyes closed showing no distress at all bed checks.
--- NOTE | 2017-01-22 16:37 | NUR ---
Tech Note: Client attended A.A.Meeting at [facility] and Juliette and is working on Feelings Letters and Big Book. Client also had a visit today.
--- NOTE | 2017-01-22 23:34 | NUR ---
Tech note: Client played catch phase for rec, had cake to celebrate a peers birthday and walked to an offsite AA meeting. Client was arguing with a peer when I entered the room for rec, she got up and left and walked to the tech station. She spoke with the other tech then came back and participated in rec. After rec was over as I was walking to put the game away I heard the girls come out of the room and they started yelling at each other. I told them to stop and Anais threatened to leave. Rhonda was called in and the girls did work things out.
--- NOTE | 2017-01-23 04:38 | NUR ---
tech note: client was motionless in no distress at all bed checks.
--- NOTE | 2017-01-23 16:23 | NUR ---
Tech Note: Client working on Feelings Letters and Self [place]. She had visitors.
--- NOTE | 2017-01-23 22:32 | NUR ---
TECH NOTE: Client attended AA panel speaker, participated in community clean and watched TV/movies. Told tech that she is avoiding certain people to prevent drama. c/o people sleeping in AA panel SE: visits
--- NOTE | 2017-01-24 05:34 | NUR ---
tech note: client was motionless in no distress at all bed checks.
--- NOTE | 2017-01-24 10:44 | NUR ---
Tech Notes: Client is working on Self-worth and Fl's
--- NOTE | 2017-01-24 11:30 | NUR ---
Experiential Group 1.5 hr/ All clients participated in family sculpturing to gain insight into family dynamics/roles by playing roles, giving feedback and relating. This client was involved and attentive.
--- NOTE | 2017-01-24 14:03 | NUR ---
Education Note: Client attended educational speaker Dom Rivero
--- NOTE | 2017-01-24 17:00 | NUR ---
FAMILY EDUCATION 3 HRS. Client attended alone and took part in the discussion on the family roles, codependency and detachment. She related to family hero role.
--- NOTE | 2017-01-24 18:49 | NUR ---
Education 1Hr: Clt attended lecture on Adult Chidren of Alcoholics given by counselor.
--- NOTE | 2017-01-24 21:00 | NUR ---
FAMILY GROUP 8:08/15 2 HR: Client, peers and attending family members gathered and participated as various clients and their families processed FEELINGS LETTERS. It was a large but cohesive group and many related, shared from personal experiences and offered encouragement and support. Much of the focus tonight was on the pain caused within the family and mostly the children when addiction is part of the picture. This client attended alone stating that she is here because [facility] took her child (children) and she couldn't stop smoking pot on her own. Client did become more and more engaged with the group as others shared and she especially appreciated hearing from one peer's mom and relating to her. Client said she is hoping her dad will be here for the group next Tuesday .
--- NOTE | 2017-01-24 22:47 | NUR ---
Tech Note: Client was in family SE: Family
--- NOTE | 2017-01-25 04:12 | NUR ---
Bed Note: Clt lay motionless in bed with eyes closed showing no distress at all bed checks.
--- NOTE | 2017-01-25 11:40 | NUR ---
IS 1.5 hr/ Client and counselor did EMDR on her trauma and [facility] to [facility] (client did not remember to make this call). Clients trauma she though was her ex cutting himself but she indicated it wasn't that bad as she felt grateful she never did self-harm and ashamed of her thoughts, but glad she is getting help, she felt ashamed she was with that BF and other sick relationships, glad she doesn't have to be in any toxic relationships now. When asked her to picture her wounded self she then voiced that "what did I do so wrong that MOM didn't want me" and this seemed to be her earliest and deepest wound that hurt her self esteem. Did do EMDR on this issue and it went from a 10 to a 5. Client was to imagine counseling herself and she said it felt good to hold herself "secure", and she sees she needs to not take her dad for granted. She recalled mom did give an apology and she wants to let mom know she forgives her. She believes her mom could be proud she is in treatment. She was to picture her sponsor, executive business coach and dad and God with her and her 4 year old wounded self, celebrate her recovery together and client said "for 1st time she didn't feel alone" as we did EMDR on her supportive people.
--- NOTE | 2017-01-25 15:09 | NUR ---
Tech Note: Client watched "The Disease of Alcoholism" and is working on Feelings Letters and Self [place].
--- NOTE | 2017-01-25 15:14 | NUR ---
Relapse Prevention, 1.0 hours, Client attended and actively participated in relapse prevention which focused on avoiding relapse and relapse prevention plan.
--- NOTE | 2017-01-25 18:57 | NUR ---
Education 1HR: Clt attended lecture given by counselor on co-dependency.
--- NOTE | 2017-01-25 22:32 | NUR ---
Tech note : Client spent rec making welcome letters for new clients and father's day cards. Client participated in guided meditation and attended an onsite AA meeting. SE; EMDR
--- NOTE | 2017-01-26 04:03 | NUR ---
Bed Note: Clt lay motionless in bed with eyes closed showing no distress at all bed checks.
--- NOTE | 2017-01-26 10:03 | NUR ---
Tech Note: Client is working on Self-worth, Fl's and mtg
--- NOTE | 2017-01-26 13:19 | NUR ---
Education notes: Client attended educational speaker Santiago Chaudhry
--- NOTE | 2017-01-26 14:48 | NUR ---
AM RES GROUP 1.5 HR. RATIO 08/24. Topics today were assignments shared, forgiving self, spirituality, and individual issues. This client did not appear to be feeling well herself yet tried to "stick up for" another client giving excuse that the client did not feel well, when client had been confronted for sleeping. She herself remained attentive but seemed to be uncomfortable physically.
--- NOTE | 2017-01-26 17:24 | NUR ---
SPIRITUAL EDUCATION 1 HR. TOpics were orienting newcomers and then we talked about what a vision board and mission statement are and they created their own after filling out a worksheet on them.
--- NOTE | 2017-01-26 18:20 | NUR ---
Education: 1 Hour: Client attended "Disease Concept Lecture" presented by staff.
--- NOTE | 2017-01-26 22:35 | NUR ---
Tech note: Client went outside for rec and played catch phrase. Client went to an onsite NA meeting and celebrated a peers birthday with icecream and cupcakes. SE; Daughter talk
--- NOTE | 2017-01-27 04:03 | NUR ---
tech note: client was motionless in no distress at all bed checks.
--- NOTE | 2017-01-27 11:30 | NUR ---
AM GRP 1.5 HRS, Ratio 1:7/ Clt sat quietly not interacting, until prompted, when the topic changed to learning to trust people. She became very defensive, and stated she doesn't want to learn to trust people. She argued with nearly everything pointed out to her, anita when it came to her kids. She stated she was a good mom, taking them to do things, etc. She heard if she is using meth and gets her kids put into foster care, that is definately not being a good mom.
--- NOTE | 2017-01-27 11:30 | NUR ---
AM/WOMEN'S GRP 1.5 HRS, Ratio 1:7/ Clt participated in grp discussion on various topics, including relationships w/ parents and raising kids while under the influence. She could relate to both, and admitted she wasn't a good, healthy mom. She also is trying to have a relationship w/ her mom, but it's not working out.
--- NOTE | 2017-01-27 14:00 | NUR ---
FAMILY SESSION 1 HR/ Father did come for a family hour, not able to stay all afternoon and does have back trouble that was apparent. He said he can't come on a Tuesday. They did both have letters done and shared them with each other. Did discuss how her addiction worried and hurt him, she lost/sold/traded nice gifts he had got her plus he had household things and some irreplaceable that disappeared because she had friends over or sold them herself. He worried when she was gone 3 nights, and ruined his biking as something always bad happened when he would go on several day trip, he would get calls when out on road. She owned how her addiction hurt him also and she appeared tearey eyed at times. Their love for each other is very strong. He also is very bonded with her 2 babies and he asked if he will be allowed to see his 2 grandchildren when she [facility]? They mentioned her living at her grandmothers was brought up by her PO and she advocated that but he seemed hesitant as he says they have conflict with each other, she said that was when she used, but he said that grandma wants things her way.
--- NOTE | 2017-01-27 15:31 | NUR ---
Tech Note: Client participated in Spiritual Enrichment in the morning and went for an outdoor walk in the afternoon. Client stated that she is working on, "Self [place]," writing feelings letters and reading the Big Book.
--- NOTE | 2017-01-27 16:14 | NUR ---
Step education 1 hr/ Focus was on step 10 "Continued to take personal inventory and when we were wrong, promptly admitted it." Each person completed a set of questions and then we discussed. At the end they took turns reading out of the big book. This client participated.
--- NOTE | 2017-01-27 19:21 | NUR ---
Eduction: 1 Hour.Client attended Americo Miller video "My Behavior."
--- NOTE | 2017-01-27 19:40 | NUR ---
Education: 1 Hour.Client attended Americo Miller video "My Behavior."
--- NOTE | 2017-01-27 22:30 | NUR ---
Tech note: Client went outside and the group played 2 truths and a lie then went for a short walk. Client participated in guided meditation and went to an onsite AA meeting. SE; Family
--- NOTE | 2017-01-28 05:28 | NUR ---
Bed note: Client was motionless with eyes closed at all bed checks.
--- NOTE | 2017-01-28 11:30 | NUR ---
GROUP 1.5 HR/ 11:1 Clients hear peers share step 1's and this client was attentive.
--- NOTE | 2017-01-28 13:00 | NUR ---
PEER REVIEWS 1 HR: Clt participated in peer review process and was able to give open and honest feedback to those receiving a review.
--- NOTE | 2017-01-28 13:00 | NUR ---
PEER REVIEWS 1 HR: Clt participated in peer review process and received her own. She heard she is angry, a hypocrit, insecure, gets upset when people give her feedback, attention-seeking, envious of others, has trust issues, hides her pain w/ laughter, is hurting inside, trying to find herself, is stubborn, controlling, has resentments, sad and depressed, portraying herself as a victim, and worries too much about what others think. She felt ashamed sad and glad.
--- NOTE | 2017-01-28 13:24 | NUR ---
Tech Note: Client went on group walk and watched "The Sound of Silence". Clt working on Self [place] and Feelings Letters.
--- NOTE | 2017-01-28 22:37 | NUR ---
Tech note: client watched tv and movies. SE:peer review
--- NOTE | 2017-01-29 04:20 | NUR ---
Bed note: Client was in bed with eye closed and no distress at all bed checks.
--- NOTE | 2017-01-29 09:48 | NUR ---
Medication Note:Client c/o sharp pain in her spine rated at 8. Client took ibuprophen 400 mg.
--- NOTE | 2017-01-29 16:20 | NUR ---
Tech Note: Client watched a video, "Spiritual Awakening" by Zach Ridley in the morning and received visitors in the afternoon. Client stated that she is working on, "Grief."
--- NOTE | 2017-01-29 20:35 | NUR ---
TECH NOTE: Client played Gestures for REC, attended off site AA meeting and watched TV/movies. SE: visits
--- NOTE | 2017-01-30 04:12 | NUR ---
BED NOTE: Client was in bed, motionless with eyes closed all bed checks.
--- NOTE | 2017-01-30 16:14 | NUR ---
Tech Note: Client attended hoahaoism. Client stated that she is working on, "Grief." Client received visitors.
--- NOTE | 2017-01-30 22:44 | NUR ---
Tech note: Client listened to the E,S & H of a member of the AA panel that gave up his time to spend with us this evening. Client watched movies and participated in community clean.
--- NOTE | 2017-01-31 04:37 | NUR ---
Bed Note: Clt lay motionless in bed with eyes closed showing no distress at all bed checks.
--- NOTE | 2017-01-31 09:57 | NUR ---
Tech notes: client is working on Grief Pkt and Fl's
--- NOTE | 2017-01-31 12:01 | NUR ---
Experiential Group 1.5 hr/ 21:3 Clients participated in Family sculpturing by role-playing, feedback and relating. This client was attentive during the roll-playing though did not give feed back at this time. Ani Lane, student
--- NOTE | 2017-01-31 13:03 | NUR ---
Education note: Client attended educational speaker Do on Marijuana.
--- NOTE | 2017-01-31 16:00 | NUR ---
RECOVERY 101 1 HR/ Clients all filled out 30 questions on what drugs they experienced consequences with to help with awareness/denial. They shared their answers and all discussed the early stage symptoms of addiction and what defines early stages of addiction.
--- NOTE | 2017-01-31 18:23 | NUR ---
Education 1HR: Clt attended lecture given by counselor on "Communication".
--- NOTE | 2017-01-31 22:44 | NUR ---
TECH NOTE: Client went on a walk for REC and attended NA meeting. Client left NA meeting at 8:50. Client c/o depression and being emotionally unstable. Client talked to tech and peers and commented that she was feeling better. SE:Talk with peers.
--- NOTE | 2017-02-01 03:58 | NUR ---
BED NOTE: Client was in bed, motionless with eyes closed all three bed checks.
--- NOTE | 2017-02-01 09:28 | NUR ---
IS 1 hr/ Client had asked for a grief packet but lost it so can do any grief work in aftercare (wasn't part of her tx planning here). Client has been working on relapse prevention packet. She did get accepted into [facility] for Tuesday at 1pm so is going home to [facility] on after 2pm session. Client prefers to stay in so is glad about [facility] but seems very unhappy about idea of going to [facility]. Counselor again restated why that is best care/support she can have. And did call [facility] and they would allow Grandfather to have visits with baby mid week or weekends so no issue with that.Client will be in [facility] and needs assigned a counselor.
--- NOTE | 2017-02-01 11:30 | NUR ---
Morning Group, 1.5 hours, 1/10 ratio, Client attended and actively participted in group discussion which focused on sharing assignments and givin feedback if necessary. Client shared her feelings letter to her dad and received feedback on not having much emotion when reading the letter. Client shared that she had read it about 3 other times and was emotional when she read it then.
--- NOTE | 2017-02-01 13:42 | NUR ---
Education Note: Client viewed a presentation on hand hygiene and proper sneezing technique.
--- NOTE | 2017-02-01 15:54 | NUR ---
Tech Note: Client participated in light stretching for morning exercise and went on an outdoor walk in the afternoon. Client followed programming.
--- NOTE | 2017-02-01 16:00 | NUR ---
Relapse Prevention, 1.0 hours, Client attended and actively participated in relapse prevention education which focused on completing the worksheet My Beautiful World and discussing as a group.
--- NOTE | 2017-02-01 16:03 | NUR ---
Mdication Note: Client took prn ibuprophen for menstrual cramps rated at 7.
--- NOTE | 2017-02-01 19:08 | NUR ---
Education: 1 Hour. Client attended presentation by [facility] on HIV/STDS/AIDS-optional HIV testing done.
--- NOTE | 2017-02-01 22:52 | NUR ---
tech note: Client played Catch Phrase for recreation,participated in Guided Meditation & attended onsite AA meeting. Client was seen spending time around male peer JF. SE: AA meeting.
--- NOTE | 2017-02-02 04:21 | NUR ---
BED NOTE: Client was in bed, motionless with eyes closed all three bed checks
--- NOTE | 2017-02-02 10:23 | NUR ---
Tech Notes: Client is working on Relapse Prevention
--- NOTE | 2017-02-02 12:05 | NUR ---
Group 1.5 hr/ 10:1 Clients heard peers share Step 1 and Change Plan, and a client that was angry about how they get called out in Community meeting. This client was attentive and gave feedback.
--- NOTE | 2017-02-02 13:19 | NUR ---
Education Note: Client attended educational speaker Hong.
--- NOTE | 2017-02-02 15:46 | NUR ---
SPIRITUALITY EDU, 1 hr: Clt participated in reading and doing an exercise on THE WALL.
--- NOTE | 2017-02-02 19:01 | NUR ---
Education: 1 hour lecture given by counselor on Step @ & 3
--- NOTE | 2017-02-02 22:51 | NUR ---
Tech note: Client worked on beaded projects or God boxes for rec, attended NA meeting. there was an issue with male peer. There was some sort of dispute but was not heard by staff. This client was in tears at end of night. counselor had been notified SE:group
--- NOTE | 2017-02-03 04:03 | NUR ---
BED NOTE: Client was in bed, motionless with eyes closed all three bed checks.
--- NOTE | 2017-02-03 11:30 | NUR ---
DAVID/WOMEN'S GRP 1.5 HRS, Kraig 1:7/ Clt participated in grp discussion on various topics, including relationships, setting boundaires, of which she could relate to both and knows to stay out of a relationship and gaining a backbone to set boundaries.
--- NOTE | 2017-02-03 15:00 | NUR ---
IS 1 hr/ Client and counselor did discuss first 3 pages of Relapse Pkt, is to continue working on it and share with aftercare counselor. Did sign release for her corporate account executive and called, client got angry when asked who she is getting ride to grandmas with, as it is the old BF that she just broke up with because he is using. Confronted that being dangerous and she said he would never let her use or have her be around it. She is to check into [facility] tomorrow and did go over her Continued Care Plan with her aftercare appt to see [facility] and is to start [facility] on 02/10, plus [facility]/ . Was given a medallion.
--- NOTE | 2017-03-13 17:18 | DS ---
ADMIT: 01/06/2017 RM/LOC: [facility] MR#: [id number] [address] [facility] [address], [place] [address] DECEMBER, SCOTT BACON [address] [place] [address] General Discharge Summary SEX: F AGE: 21 : 1995 ADMISSION DATE: 01/06/2017 DISCHARGE DATE: 02/03/2017 INDICATION FOR HOSPITALIZATION: Scott is a 21-year-old single, white female with 2 children in the [facility] system, who attempted outpatient treatment and continued to use marijuana and referred herself to residential level treatment in hope to regain custody of her children. Scott's drug of choice on admission was cannabis. Second drug of choice is methamphetamines. Please see her admission H and P for further details regarding her history of present illness, past medical history, physical exam, and assessment at the time of hospitalization. HOSPITAL COURSE: On admission, Scott was started on multivitamin. Her Keppra dose was continued and later that was switched from Keppra to Dilantin for seizures per the patient's request. Followup Dilantin levels along with routine labs were requested. The patient ultimately declined the Dilantin and it was discontinued on January 12. Urine test was done during treatment per the patient's request. During treatment, her primary counselor assigned was Kimi Valdez. She completed individual and group therapy sessions on drug and alcohol abuse and dependency. She was overall accepting of her substance abuse problems. Her father was the caregiver of her 2 children, although they were in foster care. He was present during the family portion of her treatment program. Overall, she was accepting of her drug and alcohol abuse and dependency treatment problems. She completed step #1 of Alcoholics Anonymous. Reason for discharge was completion of residential level treatment goals. Aftercare recommendations include referral to [facility] with detention house placement, outpatient counseling, sponsor assignment, and active AA and NA meeting involvement. ADMIT: 01/06/2017 RM/LOC: [facility] MR#: [id number] [address] [id number] DECEMBER, SCOTT BACON [address] [facility] [address] [place] [address] General Discharge Summary SEX: F AGE: 21 : 1995 LABORATORY AND X-RAY DATA DURING HOSPITALIZATION: Include January 06, urine test that was negative. DISCHARGE MEDICATIONS: Include multivitamin one daily. FINAL DISCHARGE DIAGNOSES: Include: 1. Cannabis use disorder, severe. 2. 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 3. Tobacco use disorder along with a prior withdrawal seizure. PROCEDURES: Include drug and alcohol abuse dependency treatment and counseling. Please see her hospital record for further details. Artis Garibay MD/ xiang JOB #: [id number] CC: Artis Garibay MD, Attending Physician UNKNOWN, Family Physician
== END 2017-02-03 15:17 | disposition home or self-care (01) | DRG 895 ==
LOC: ADTC 14:15
PROVIDERS: ADMIT Family Medicine
PROC: HZ34ZZZ Individual Counseling for Substance Abuse Treatment, Interpersonal (ICD-10-PCS; principal; 2017-01-06)
PROC: HZ43ZZZ Group Counseling for Substance Abuse Treatment, 12-Step (ICD-10-PCS; principal; 2017-01-06)
PROC: HZ63ZZZ Family Counseling for Substance Abuse Treatment (ICD-10-PCS; principal; 2017-01-06)
DX: F12.20 Cannabis dependence, uncomplicated (principal); F15.21 Other stimulant dependence, in remission; G40.909 Epilepsy, unspecified, not intractable, without status epilepticus; F17.210 Nicotine dependence, cigarettes, uncomplicated; Z56.0 Unemployment, unspecified